=== PATIENT | male | born 1945 | race Caucasian/White ===

== ENCOUNTER 2021-06-20 17:59 | Emergency (ER) | payer BC, OTHER ==
[~2021-06-20] VITALS: Ht 170.2 cm; Wt 88.5 kg
[2021-06-20] MEDS ORDERED: ASPI81TA31 PO (18:24)
[2021-06-20] MEDS ORDERED: METO25TA6 PO (18:24)
[2021-06-20] MEDS ORDERED: ISOS60TA72 PO (18:24)
[2021-06-20] MEDS ORDERED: ATOR20TA PO (18:24)
[2021-06-20] MEDS ORDERED: GLIP5TAB26 PO (18:24)
[2021-06-20] MEDS ORDERED: SITA50TA PO (18:24)
[2021-06-20] MEDS ORDERED: CRAN500T PO (18:37)
[2021-06-20] MEDS ORDERED: OXYB10TA30 PO (18:37)
[2021-06-20] MEDS ORDERED: CETI10CA19 PO (18:37)
[2021-06-20] MEDS ORDERED: RANO500T3 PO (18:37)
[2021-06-20] MEDS ORDERED: FLUT16SP BNOSTRILS (18:37)
[2021-06-20] MEDS ORDERED: CHLO25TA2 PO (18:37)
[2021-06-20 19:00] LABS: HEMATOCRIT 42.8 % (36.7-47.1); MEAN CORPUSCULAR HEMOGLOBIN 31.2 uug (23.8-33.4); MEAN CORPUSCULAR VOLUME 94.5 fL (73.0-96.2); PLATELET COUNT (AUTO) 302 K/uL (152-348)
[2021-06-20 19:06] LABS: CARBON DIOXIDE 31 mmol/L (21-32); CHLORIDE 104 mmol/L (98-107); CREATININE 1.4 mg/dL (0.6-1.3); GLUCOSE 190 mg/dL (74-106); POTASSIUM 4.1 mmol/L (3.5-5.1); UREA NITROGEN, BLOOD 15 mg/dL (7-18)
--- NOTE | 2021-06-20 19:15 | NUR ---
RECEIVED REPORT FROM RAYMOND, TISH. PT NOTED TO BE IN BED COMFORTABLE, DENIES ANY PAIN. NO SOB OR LABORED BREATHING. AFEBRILE. A/O X3.
[2021-06-20 19:18] LABS: ALANINE AMINOTRANSFERASE 18 U/L (16-63); ALKALINE PHOSPHATASE 99 U/L (50-136); ASPARTATE AMINOTRANSFERASE 9 U/L (15-37); BILIRUBIN,DIRECT 0.1 mg/dL (0.0-0.2); BILIRUBIN,TOTAL 0.5 mg/dL (0.2-1.0); TOTAL PROTEIN, SERUM 6.8 g/dL (6.4-8.2)
[2021-06-20 19:39] LABS: *BILIRUBIN,URIN NEGATIVE (NEGATIVE); *BLOOD, URINE NEGATIVE (NEGATIVE); *CLARITY,URINE CLEAR (CLEAR); *COLOR,URINE YELLOW (YELLOW); *KETONES,URINE NEGATIVE (NEGATIVE); *UROBILINOGEN,URINE 0.2 E.U./dl (NORMAL); LEUKOCYTE ESTERASE ,URINE 1+ (NEGATIVE); NITRITE, URINE NEGATIVE (NEGATIVE); UGLUCOSE NEGATIVE (NEGATIVE)
[2021-06-20 19:51] LABS: BACTERIA,URINE NONE SEEN /HPF (NONE SEEN); RBC,URINE 0-3 /HPF (0-3)
[2021-06-20] MEDS ORDERED: FURO-152 PO (20:04)
--- NOTE | 2021-06-20 20:22 | NUR ---
Patient given written and verbal discharge instructions. Patient verbalizes understanding of instructions. Patient is ambulatory with steady gait. Refuses offer of [facility] placement. Patient given list of available shelters in surrounding area. pt denies any pain or sob, steady gait ambulate without assist.
[2021-06-20 20:23] VITALS: BP 132/78
== END 2021-06-20 20:24 | disposition home or self-care (01) ==
LOC: ER 17:59
DX: R60.0 Localized edema (principal); J90 Pleural effusion, not elsewhere classified; I25.2 Old myocardial infarction; Z95.5 Presence of coronary angioplasty implant and graft; J44.9 Chronic obstructive pulmonary disease, unspecified; E11.9 Type 2 diabetes mellitus without complications; Z89.422 Acquired absence of other left toe(s); Z79.84 Long term (current) use of oral hypoglycemic drugs; Z79.82 Long term (current) use of aspirin; Z79.899 Other long term (current) drug therapy; N32.81 Overactive bladder; Z88.6 Allergy status to analgesic agent; Z88.5 Allergy status to narcotic agent; Z88.2 Allergy status to sulfonamides; I10 Essential (primary) hypertension
CPT/HCPCS: 36415; 70030-TC; 71045; 85025; 87086; 93005; A4663